=== PATIENT | male | born 1990 | race Caucasian/White ===

== ENCOUNTER 2020-02-13 11:48 | Emergency (ER) | payer SELFPAY ==
--- NOTE | 2020-02-13 12:47 | ER Document Report ---
ED Medical Screen (RME) - General Chief Complaint: Medical Clearance Stated Complaint: MEDICAL CLEARANCE Time Seen by Provider: 02/13/20 12:38 Mode of Arrival: Ambulatory Information source: Patient Notes: HPI; 31-year-old male sent over from [facility] for medical clearance for detox. Patient states he has been a heavy drinker for the past 3 years. Last drink around 3 AM this morning. States he went to [facility] for rehab and was sent to the emergency room for clearance. States he been vomiting blood for the past 2 weeks. Denies any COVID-19 exposure. PE: Alert and oriented x3. Lungs: Clear to auscultation without rales, rhonchi, wheezes. Heart: Regular rate rhythm without murmurs, rubs, gallops. I have greeted and performed a rapid initial assessment of this patient. A comprehensive ED assessment and evaluation of the patient, analysis of test results and completion of the medical decision making process will be conducted by additional ED providers. I have specifically instructed the patient or family members with the patient to immediately return to any nursing staff should anything change in the patient's condition or with their chief complaint. TRAVEL OUTSIDE OF THE [place] IN LAST 30 DAYS: No - Related Data Allergies/Adverse Reactions: No Known Allergies Allergy (Verified 02/13/20 12:36) Past Medical History - Social History Frequency of alcohol use: Heavy Physical Exam - Vital signs Vitals: Temp Pulse Resp BP Pulse Ox 98.2 F 74 16 127/74 H 98 02/13/20 12:27 02/13/20 12:27 02/13/20 12:27 02/13/20 12:27 02/13/20 12:27 Course - Vital Signs Vital signs: Temp Pulse Resp BP Pulse Ox 98.2 F 74 16 127/74 H 98 02/13/20 12:27 02/13/20 12:27 02/13/20 12:27 02/13/20 12:27 02/13/20 12:27
[2020-02-13 15:01] LABS: ABSOLUTE BASOPHILS # (AUTO) 0.1 10^3/uL (0.0-0.2); ABSOLUTE EOSINOPHILS # (AUTO) 0.1 10^3/uL (0.0-0.6); ABSOLUTE LYMPHOCYTES (AUTO) 2.5 10^3/uL (0.5-4.7); ABSOLUTE MONOCYTES (AUTO) 0.6 10^3/uL (0.1-1.4); ABSOLUTE NEUT (AUTO) 3.3 10^3/uL (1.7-8.2); EOSINOPHILS % (AUTO) 1.6 % (0-6); HEMATOCRIT 43.3 % (37.9-51.0); LYMPHOCYTES % (AUTO) 37.6 % (13-45); MEAN CORPUSCULAR HEMOGLOBIN 33.6 pg (27.0-33.4); MEAN CORPUSCULAR HGB CONC 34.7 g/dL (32.0-36.0); MEAN CORPUSCULAR VOLUME 97 fl (80-97); PLATELET COUNT 534 10^3/uL (150-450); RED BLOOD COUNT 4.47 10^6/uL (4.35-5.55); SEGMENTED NEUTROPHILS % (AUTO) 50.8 % (42-78); TOTAL CELLS COUNTED % (AUTO) 100 %; WHITE BLOOD COUNT 6.6 10^3/uL (4.0-10.5)
[2020-02-13 15:06] LABS: AMORPHOUS SEDIMENT,URINE 1+ /HPF; APPEARANCE,URINE TURBID; BILIRUBIN,URINE NEGATIVE (NEGATIVE); COLOR,URINE YELLOW; GLUCOSE, URINE NEGATIVE (NEGATIVE); KETONES,URINE NEGATIVE (NEGATIVE); LEUKOCYTE ESTERASE,URINE NEGATIVE (NEGATIVE); NITRITE,URINE NEGATIVE (NEGATIVE); PROTEIN,URINE NEGATIVE (NEGATIVE); URINE SPECIFIC GRAVITY 1.014
[2020-02-13 15:24] LABS: ACETAMINOPHEN < 10 ug/mL (10-30); ALBUMIN 4.3 g/dL (3.5-5.0); ALCOHOL 74 mg/dL (NONE DETECTED); ALKALINE PHOSPHATASE 45 U/L (38-126); ANION GAP 5 (5-19); ASPARTATE AMINO TRANSFERASE 27 U/L (17-59); BILIRUBIN,DIRECT 0.2 mg/dL (0.0-0.4); BILIRUBIN,TOTAL 0.2 mg/dL (0.2-1.3); BLOOD UREA NITROGEN 7 mg/dL (7-20); CARBON DIOXIDE 32 mmol/L (22-30); CHLORIDE 106 mmol/L (98-107); GLUCOSE 88 mg/dL (75-110); POTASSIUM 5.6 mmol/L (3.6-5.0); SALICYLATE < 1.0 mg/dL (2.0-20.0); TOTAL PROTEIN 7.2 g/dL (6.3-8.2)
[2020-02-13 15:25] LABS: URINE AMPHETAMINES SCREEN UNCONFIRMED POSITIVE; URINE BARBITURATES SCREEN NEGATIVE; URINE BENZODIAZEPINES SCREEN NEGATIVE; URINE COCAINE SCREEN NEGATIVE; URINE MARIJUANA (THC) SCREEN NEGATIVE; URINE METHADONE SCREEN NEGATIVE; URINE PHENCYCLIDINE SCREEN NEGATIVE
[2020-02-13 17:13] LABS: ANION GAP 7 (5-19); BLOOD UREA NITROGEN 6 mg/dL (7-20); CALCIUM 10.1 mg/dL (8.4-10.2); CARBON DIOXIDE 31 mmol/L (22-30); CHLORIDE 103 mmol/L (98-107); GLUCOSE 87 mg/dL (75-110); POTASSIUM 5.4 mmol/L (3.6-5.0)
[2020-02-13] MEDS ORDERED: SODIUM POLYSTYRENE SULFONATE 15 GM/60 ML PO ONE (17:24)
--- NOTE | 2020-02-13 18:00 | ER Document Report ---
ED General - General Chief Complaint: Medical Clearance Stated Complaint: MEDICAL CLEARANCE Time Seen by Provider: 02/13/20 12:38 Mode of Arrival: Ambulatory Information source: Patient, Parent TRAVEL OUTSIDE OF THE [place] IN LAST 30 DAYS: No - HPI Patient complains to provider of: Needs medical clearance for detox Notes: Patient here for medical clearance for detox. The patient is an alcoholic. He states that he drinks at least a 12 pack of beer and liquor every day. Is been doing this for years. He would like to get help and tried to be seen at [facility], he was sent here for medical clearance because he told the staff there that he had vomited some blood this morning. Patient apparently gags himself after he eats. He states that he has done this for the last several years. He reports that he has a few lesions in the back of his throat from where he gags himself. Apparently he had one episode this morning of vomiting where there was some clots of blood. It was not coffee-ground emesis. He has not vomited since. He does complain of some mild nausea. He denies any abdominal pain at this time. He is not on blood thinning medications. He denies any black tarry stools. The patient denies any drug abuse to me. He denies any chest pain or shortness of breath. No fever. Nothing seems to make symptoms better or worse. He denies any other specific complaints. No homicidal or suicidal ideation. - Related Data Allergies/Adverse Reactions: No Known Allergies Allergy (Verified 02/13/20 12:36) Past Medical History - General Information source: Patient - Social History Smoking Status: Current Every Day Smoker Frequency of alcohol use: Heavy Family History: Reviewed & Not Pertinent Patient has homicidal ideation: No Review of Systems - Review of Systems -: Yes All other systems reviewed and negative Physical Exam - Vital signs Vitals: Temp Pulse Resp BP Pulse Ox 98.2 F 74 16 127/74 H 98 02/13/20 12:27 02/13/20 12:27 02/13/20 12:27 02/13/20 12:27 02/13/20 12:27 - Notes Notes: GENERAL: alert, cooperative, nontoxic, no distress. HEAD: normocephalic, atraumatic EYES: conjunctiva pink without discharge, no external redness or swelling. EARS: no external swelling, no external redness NOSE: atraumatic, no external swelling MOUTH/THROAT: mucous membranes moist and pink, posterior pharynx without erythema, swelling, exudate. No trismus or drooling. Patient noted to have 2 lesions in the posterior pharynx linear in nature. There is no active bleeding or significant erythema. NECK: soft, supple, full range of motion, no meningismus. CHEST: no distress, lungs clear and equal throughout. No wheezing, rales, rhonchi. CARDIAC: regular rate and rhythm, no murmur ABDOMEN: Soft, nontender to palpation. BACK: full range of motion EXTREMITIES: full range of motion of all extremities. No redness, no swelling. NEURO: alert and oriented x 3, no focal deficits, full range of motion of all extremities. PYSCH: appropriate mood, affect. Patient is cooperative. SKIN: pink, warm, dry, multiple healed lesions to the hands, arms, legs. RECTAL: Few external hemorrhoids. Normal rectal tone, no mass, no tenderness. Light brown stool noted. Hemoccult negative. Course - Re-evaluation Re-evalutation: 02/13/20 17:59 Patient resting comfortably at this time. I have spoken with the mother as well as the patient. I have gone over lab results with the patient. Questions of been answered. We will discharge to [facility] for rehab. Patient is nontoxic-appearing with stable vitals. He was sent here for medical clearance in order to go to rehab for alcohol. Vital signs are stable. On exam the patient has no obvious signs of tremor or significant withdrawal at this time. Patient's labs show a normal white count of 6.6, hemoglobin of 15. Patient does report having an episode of vomiting some blood clots this morning, has had no vomiting since he denies any upper abdominal pain at this time. Patient states he does gag himself and is noted to have 2 linear lesions in the posterior pharynx. He has noted to have long fingernails, do believe that the patient probably has lesions to the back of his throat secondary to gagging himself with his 2 fingers. There is no active bleeding at this time. With a normal hemoglobin of 15, no vomiting since this morning and a negative stool Hemoccult, have a very low suspicion for active upper GI bleed at this time. His BUN is also normal. Chemistries are unremarkable aside from a slightly elevated potassium of 5.4. His EKG is normal with no EKG changes, no peaked T waves. Patient will be given a dose of Kayexalate prior to his discharge over to [facility]. LFTs are normal. Urinalysis shows no signs of infection. Serum alco hol is 74. Drug screen positive for amphetamines. The patient denies drug use. This point do believe the patient is medically cleared to go to [facility] for rehab. I spoke with the nurse over there and gave report. Patient be discharged from the emergency department with instructions to go to [facility] for rehab. The patient's emergency department workup and current diagnosis were explained to the patient and or family. Follow-up instructions were provided. Medications if prescribed were discussed. Instructions for when to return to the emergency department including specific worrisome symptoms were discussed with the patient and/or family. - Vital Signs Vital signs: Temp Pulse Resp BP Pulse Ox 98.2 F 74 16 127/74 H 98 02/13/20 12:27 02/13/20 12:27 02/13/20 12:27 02/13/20 12:27 02/13/20 12:27 - Laboratory Results Result Diagrams: 02/13/20 14:37 02/13/20 16:35 Laboratory Results Interpreted: 02/13/20 02/13/20 02/13/20 14:37 14:37 14:37 MCH 33.6 H Plt Count 534 H Potassium 5.6 H Carbon Dioxide 32 H BUN Urine Urobilinogen 4.0 H Salicylates < 1.0 L Acetaminophen < 10 L 02/13/20 16:35 [facility] Plt Count Potassium 5.4 H Carbon Dioxide 31 H BUN 6 L Urine Urobilinogen Salicylates Acetaminophen Critical Laboratory Results Reviewed: No Critical Results - Radiology Results Critical Radiology Results Reviewed: No Critical Results Discharge - Discharge Clinical Impression: Abuse, drug or alcohol, Amphetamine abuse, Hyperkalemia, Bulimia Condition: Stable Disposition: REHAB FACILITY Instructions: Chronic Alcoholism ([facility]) Additional Instructions: You have been medically cleared at this time. Your potassium was slightly elevated at 5.4, you were given Kayexalate for this prior to your discharge from the ER. Follow-up at [facility] for further evaluation and management. Follow-up sooner for worsening symptoms, high fever, persistent vomiting, severe pain, or for any further concerns. Referrals: [facility] [Provider Group] - Follow up as needed
[2020-02-13 19:00] VITALS: BP 134/84
--- NOTE | 2020-02-13 23:37 | EKG REPORT ---
SEVERITY:- NORMAL ECG - SINUS RHYTHM : Confirmed by: Corey Ferreira 13-Feb-2020 23:36:14
== END 2020-02-13 19:00 ==
LOC: ER 11:48
DX: F10.10 Alcohol abuse, uncomplicated (principal); F15.10 Other stimulant abuse, uncomplicated; E87.5 Hyperkalemia; F50.2 Bulimia nervosa; F17.200 Nicotine dependence, unspecified, uncomplicated
CPT/HCPCS: 36415; 80053; 80307; 81001; 82270; 85025; 93005; 93010; 99284